=== PATIENT | male | born 1980 | race Caucasian/White ===

== ENCOUNTER → 2019-12-04 | Outpatient (CLI) | payer BC ==
[2019-12-04 14:02] LABS: Basophils % (A) 1 %; Eosinophils # (A) 0.3 k/uL (0-0.7); Eosinophils % (A) 4 %; HCT 46.4 % (39.0-53.0); Lymphocytes # (A) 2.7 k/uL (1.0-4.8); Lymphocytes % (A) 37 %; MCH 29.6 pg (25.0-35.0); MCHC 32.4 g/dL (31.0-37.0); MCV 91.3 fL (80.0-100.0); Mean Platelet Volume 9.9; Monocytes # (A) 0.5 k/uL (0-1.0); Monocytes % (A) 7 %; Neutrophils # (A) 3.4 k/uL (1.3-7.7); Neutrophils % (A) 48 %; Platelet Count 148 k/uL (150-450); RBC 5.08 m/uL (4.30-5.90); RDW 12.3 % (11.5-15.5); WBC 7.2 k/uL (3.8-10.6)
[2019-12-04 14:08] LABS: Appearance,Urine Clear (Clear); Bilirubin,Urine Negative (Negative); Blood,Urine Negative (Negative); Color,Urine Light Yellow; Glucose,Urine (UA) Negative (Negative); Ketones,Urine Negative (Negative); Leukocyte Esterase,Urine Negative (Negative); Nitrite,Urine Negative (Negative); Protein,Urine Negative (Negative); Specific Gravity,Urine 1.005 (1.001-1.035); Urobilinogen,Urine <2.0 mg/dL (<2.0)
[2019-12-04 19:29] LABS: African American GFR (CKD) 97.5 (60.0-200.0); Albumin 4.9 g/dL (3.80-4.90); Albumin/Globulin Ratio 2.45 (1.60-3.17); Anion Gap 10.4 mmol/L (4.00-12.00); BUN/Creat Ratio 8.18 Ratio (12.00-20.00); Calcium 9.6 mg/dL (8.7-10.3); Carbon Dioxide 29.6 mmol/L (21.6-31.8); Chol/HDL Ratio 3.11; LDL Cholesterol,Calculated 92.6 mg/dL (0.0-131.0); Non-African American GFR(CKD) 84.1 (60.0-200.0); Potassium 4.4 mmol/L (3.5-5.5); Total Bilirubin 0.7 mg/dL (0.2-1.2); Total Protein 6.9 g/dL (6.2-8.2); VLDL Calculation 21.4 mg/dL (5.00-40.00)
[2019-12-04 20:55] LABS: Erythrocyte Sedimentation Rate 2 mm/Hr (0-15)
== END | disposition home or self-care (01) ==
LOC: LABWHC1 11:46
PROVIDERS: ATTEND Internal Medicine
DX: E87.8 Other disorders of electrolyte and fluid balance, not elsewhere classified (principal); E78.5 Hyperlipidemia, unspecified; N39.0 Urinary tract infection, site not specified; E55.9 Vitamin D deficiency, unspecified
CPT/HCPCS: 36415; 80053; 80061; 81003; 82306; 82550; 84443; 85025; 85652; 87086

== ENCOUNTER → 2021-03-27 | Outpatient (CLI) | payer BC ==
[2021-03-27 19:43] LABS: Basophils # (A) 0.05 X 10*3/uL (0.00-0.10); Basophils % (A) 0.5 %; Eosinophils # (A) 0.52 X 10*3/uL (0.04-0.35); Eosinophils % (A) 5.5 %; HCT 42.2 % (39.6-50.0); HGB 13.7 g/dL (13.0-17.0); Lymphocytes # (A) 2.48 X 10*3/uL (0.90-5.00); Lymphocytes % (A) 26.1 %; MCH 30.2 pg (27.0-32.0); MCHC 32.5 g/dL (32.0-37.0); Mean Platelet Volume 12.1 fL (9.5-12.2); Monocytes # (A) 0.86 X 10*3/uL (0.20-1.00); Neutrophils # (A) 5.59 X 10*3/uL (1.80-7.70); Neutrophils % (A) 58.7 %; Platelet Count 178 X 10*3/uL (140-440); RBC 4.54 X 10*6/uL (4.40-5.60); RDW 12.5 % (11.5-14.5); WBC 9.52 X 10*3/uL (4.50-10.00)
[2021-03-27 21:26] LABS: Erythrocyte Sedimentation Rate 126 mm/Hr (0-15)
[2021-03-27 23:24] LABS: ALT 19 U/L (10-49); AST 20 U/L (14-35); African American GFR (CKD) 95.8 (60.0-200.0); Albumin 4.7 g/dL (3.8-4.9); Albumin/Globulin Ratio 2.61 (1.60-3.17); Alkaline Phosphatase 103 U/L (41-126); BUN/Creat Ratio 4.66 Ratio (12.00-20.00); Blood Urea Nitrogen 5.2 mg/dL (9.0-27.0); Calcium 9.3 mg/dL (8.7-10.3); Carbon Dioxide 25.9 mmol/L (21.6-31.8); Chloride 103 mmol/L (96-109); Chol/HDL Ratio 2.94 Ratio; Creatine Kinase 86 U/L (35-257); Globulin 1.8 g/dL (1.6-3.3); Glucose 94 mg/dL (70-110); LDL Cholesterol,Calculated 97.6 mg/dL (0.0-131.0); Non-African American GFR(CKD) 82.6 (60.0-200.0); Phosphorus 3.4 mg/dL (2.4-5.1); Potassium 3.8 mmol/L (3.5-5.5); Sodium 141 mmol/L (135-145); Total Protein 6.5 g/dL (6.2-8.2)
[2021-03-27 23:53] LABS: C Reactive Protein <0.30 mg/dL (0.00-0.80)
== END | disposition home or self-care (01) ==
LOC: LABWHC1 10:53
PROVIDERS: ATTEND Internal Medicine
DX: Z00.00 Encounter for general adult medical examination without abnormal findings (principal); D64.9 Anemia, unspecified; N40.0 Benign prostatic hyperplasia without lower urinary tract symptoms; E87.8 Other disorders of electrolyte and fluid balance, not elsewhere classified; E78.5 Hyperlipidemia, unspecified; E55.9 Vitamin D deficiency, unspecified; N41.0 Acute prostatitis
CPT/HCPCS: 36415; 80053; 80061; 82306; 82550; 83735; 84100; 84153; 84443; 85025; 85652; 86140

== ENCOUNTER → 2022-05-16 | Outpatient (CLI) | payer OTHER ==
--- NOTE | 2022-05-16 13:32 | CT ---
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 Coronal and sagittal reconstr uctions performed. CT DLP: 562 mGycm Automated exposure control for dose reduction was used. FINDINGS: No dilated small bowel or free fluid seen within the visualized mid to lower abdomen or pelvis. Normal appendix. Moderate stool burden. No pericolonic inflammatory change. Bladder is urine distended. Prostate gland measuring 3.9 cm wide which is borderline caliber. A coupl e small pelvic phlebolith are noted. No abnormal fluid collection in the pelvis or pelvic lymphadenop athy. Bones: Mild degenerative change suggested at the hips. 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 If any chronic hip pain, consider orthopedic referral. IMPRESSION: 1. PROSTATE GLAND BORDERLINE IN SIZE AT 3.9 CM. 2. MODERATE OVERALL STABLE BRADYCARDIA. 3. OTHERWISE, NO SPECIFIC ABNORMALITY SEEN IN THE MID TO LOWER ABDOMEN OR PELVIS BY NONCONTRAST CT. 4. INCIDENTAL: SOME BONY CHANGES AT THE HIPS. IF ANY CHRONIC HIP PAIN, CONSIDER ORTHOPEDIC REFERRAL F OR POTENTIAL FEMORAL ACETABULAR IMPINGEMENT SYNDROME.
== END | disposition home or self-care (01) ==
LOC: RADCTMAIN 10:47
PROVIDERS: ATTEND Internal Medicine
DX: M24.859 Other specific joint derangements of unspecified hip, not elsewhere classified (principal); N41.9 Inflammatory disease of prostate, unspecified; N42.81 Prostatodynia syndrome; G89.29 Other chronic pain; R00.1 Bradycardia, unspecified
CPT/HCPCS: 72192

== ENCOUNTER → 2023-04-01 | Outpatient (CLI) | payer OTHER ==
--- NOTE | 2023-04-01 14:07 | XR ---
EXAMINATION TYPE: XR chest 2V DATE OF EXAM: 04/01/2023 COMPARISON: 08/23/2017 HISTORY: Chest pain TECHNIQUE: Frontal and lateral views of the chest are obtained. FINDINGS: There is no focal air space opacity. No evidence for pneumothorax. No pleural effusion. The cardiac silhouette size is within normal limits. The osseous structures are grossly intact. IMPRESSION: 1. No acute cardiopulmonary process.
[2023-04-02 02:53] LABS: Basophils # (A) 0.03 X 10*3/uL (0.00-0.10); Basophils % (A) 0.2 %; Eosinophils # (A) 0.04 X 10*3/uL (0.04-0.35); Eosinophils % (A) 0.3 %; HCT 45.3 % (39.6-50.0); HGB 14.8 g/dL (13.0-17.0); Lymphocytes % (A) 17.6 %; MCH 30.2 pg (27.0-32.0); MCHC 32.7 g/dL (32.0-37.0); MCV 92.4 FL (80.0-97.0); Mean Platelet Volume 11.4 FL (9.5-12.2); Monocytes # (A) 1.02 X 10*3/uL (0.20-1.00); Monocytes % (A) 6.9 %; NRBC Per 100 WBC 0 X 10*3/uL (0.00-0.01); Neutrophils # (A) 11.02 X 10*3/uL (1.80-7.70); Neutrophils % (A) 74.4 %; Platelet Count 243 X 10*3/uL (140-440); RDW 12.3 % (11.5-14.5)
[2023-04-02 03:05] LABS: Blood Urea Nitrogen 4.4 mg/dL (9.0-27.0); Calcium 9.6 mg/dL (8.7-10.3); Carbon Dioxide 29.1 mmol/L (21.6-31.8); Chloride 101 mmol/L (96-109); Glucose 107 mg/dL (70-110); Potassium 3.9 mmol/L (3.5-5.5); Sodium 142 mmol/L (135-145)
== END | disposition home or self-care (01) ==
LOC: RADXRMAIN 13:30
PROVIDERS: ATTEND Internal Medicine
DX: R50.9 Fever, unspecified (principal); R05.9 Cough, unspecified
CPT/HCPCS: 71046; 80048; 85025; 87502; 87634

== ENCOUNTER → 2024-03-04 | Outpatient (CLI) | payer OTHER ==
--- NOTE | 2024-03-04 11:26 | XR ---
EXAMINATION TYPE: XR cervical spine comp DATE OF EXAM: 03/04/2024 11:09 AM INDICATION: Patient age:Male; 43 years old; Reason for study: M54.81OCCIPITAL NEURALGIA M54.2 CERVICALGIA; [facility]. COMPARISON: None TECHNIQUE: The cervical spine was imaged in frontal, bilateral oblique, lateral, and odontoid project ions. FINDINGS: The osseous structures show normal alignment without evidence of an acute fracture. The intervertebra l disk spaces are preserved. . Pedicles are intact. Soft tissues are within normal limits. The odont oid appears intact. IMPRESSION: 1. No fracture or dislocation. 2. No significant degenerative disc disease. [facility], , 03/04/2024 11:23 AM
--- NOTE | 2024-03-04 11:27 | XR ---
EXAMINATION TYPE: XR thoracic spine complete DATE OF EXAM: 03/04/2024 11:09 AM INDICATION: Patient age:Male; 43 years old; Reason for study: M54.81OCCIPITAL NEURALGIA M54.2 CERVICALGIA; [facility]. COMPARISON: None TECHNIQUE: 3 views of the thoracic spine in frontal, lateral, and swimmer's projections. FINDINGS: No evidence of acute fracture. There is no evidence of disk space narrowing or loss of vertebral bod y height. There is normal alignment of the thoracic vertebral bodies. IMPRESSION: No acute osseous pathology. [facility], , 03/04/2024 11:24 AM
== END | disposition home or self-care (01) ==
LOC: RADXRMAIN 10:34
PROVIDERS: ATTEND Internal Medicine
CPT/HCPCS: 72050; 72072